=== PATIENT | male | born 1980 | race Caucasian/White ===

== ENCOUNTER → 2016-08-10 | Outpatient (CLI) | payer OTHER ==
--- NOTE | 2016-08-10 10:19 | REP ---
LUMBAR SPINE, FIVE VIEWS: The lowest intervertebral disc is assumed to be the L5-S1 intervertebral disc. There is no acute fracture or subluxation. The intervertebral discs are normal in height. The facet joints are normal in appearance. There is spina bifida occulta of L5. IMPRESSION: There is no acute fracture or subluxation. Signed by Spencer Jameson MD 08/10/2016 10:20 A
== END ==
LOC: M RAD 09:22
PROVIDERS: ATTEND Surgery
DX: M54.5 Low back pain (principal)